=== PATIENT | male | born 1955 | race Caucasian/White ===

== ENCOUNTER 2017-08-13 10:47 | Emergency (ER) | payer BC ==
[~2017-08-13] VITALS: Ht 177.8 cm; Wt 77.6 kg
[~2017-08-13 10:47] MED LIST: CEPH500C PO; INSU100V6 SQ; LISI10TA2 PO
[2017-08-13] MEDS ORDERED: cloNIDine 0.1 MG (CATAPRES) TAB PO ONE (11:00)
[2017-08-13] MEDS ORDERED: NS IV 1000 ML 1,000 ML IV SCH (11:00)
--- NOTE | 2017-08-13 11:06 | ED General ---
General Stated Complaint: TIRED, NAUSEA HAS DIAG STARR CAUÑA Source of Information: Patient Exam Limitations: No Limitations History of Present Illness Date Seen by Provider: Aug 13, 2017 Time Seen by Provider: 11:02 Initial Comments to ER per private vehicle from home with reports of fatigue, nausea, feeling "out of it". He was diagnosed by Dr. Santana with [place] spotted fever about 2 weeks ago and he is finishing a 14 day course of doxycycline. He felt okay yesterday other than that he has developed a pruritic rash to the right arm over the past few days. He denies any fatigue or fevers as of yesterday. This morning upon awakening he feels out of it and "distant". Normally his blood pressure is about 120/80 and well-controlled on medication but today he is noted to be 200/114 which he states is very unusual for him. He sees Dr. Santana locally and travels between here in [place] quite a bit so his party host is in [place]. Timing/Duration: 12-24 Hours Severity: Moderate Associated Systoms: No Chest Pain, No Cough, No Diaphoresis, No Fever/Chills, No Headaches, No Loss of Appetite; Malaise, Nausea/Vomiting Allergies and Home Medications Allergies Coded Allergies: No Known Drug Allergies (Unverified , 09/27/13) Home Medications Cephalexin Monohydrate 500 Mg Capsule, 1 EACH PO TID Prescribed by: LEE AMBRIZ on 09/27/13 1802 Clonidine HCl 0.1 Mg Tablet, 0.1 MG PO BID PRN for high blood pressure Prescribed by: JHONNY WILKES on 08/13/17 1155 Insulin Glargine,Hum.rec.anlog 100 Unit/1 Ml Vial, 25 UNIT SQ HS, (Reported) Lisinopril 10 Mg Tablet, Unknown Dose PO DAILY, (Reported) Patient Home Medication List Home Medication List Reviewed: Yes Review of Systems Constitutional: see HPI EENTM: see HPI Respiratory: no symptoms reported Cardiovascular: no symptoms reported Genitourinary: no symptoms reported Musculoskeletal: no symptoms reported Skin: no symptoms reported Psychiatric/Neurological: No Symptoms Reported Hematologic/Lymphatic: No Symptoms Reported Past Qzylkbj-Uvjuci-Frxudb Hx Patient Social History Recent Foreign Travel: No Contact w/Someone Who Travel: No Past Medical History Reproductive Disorders: No Sexually Transmitted Disease: No HIV/AIDS: No Diabetes, Non-Insulin dep Physical Exam Vital Signs Vital Signs - First Documented 08/13/17 10:47 Temp 96.0 Pulse 78 Resp 16 B/P (MAP) 201/148 (165) Pulse Ox 96 O2 Delivery Room Air Capillary Refill : General Appearance: No Apparent Distress, WD/WN Eyes: Bilateral Eye Normal Inspection, Bilateral Eye PERRL, Bilateral Eye EOMI HEENT: PERRL/EOMI, TMs Normal, Normal ENT Inspection, Pharynx Normal Neck: Full Range of Motion, Normal Inspection Respiratory: Normal Breath Sounds, No Accessory Muscle Use, No Respiratory Distress Cardiovascular: Regular Rate, Rhythm, Normal Peripheral Pulses Gastrointestinal: Normal Bowel Sounds, Non Tender, Soft Neurologic/Psychiatric: Alert, Oriented x3 Skin: Rash (there is some erythema to the volar surface of the right forearm with papules that he states are pruritic. A few as well to the left arm but not nearly as much as the right.) Focused Exam Lactate Level 08/13/17 11:04: Lactic Acid Level 1.89 Lactic Acid Level Laboratory Tests Test 08/13/17 11:04 Lactic Acid Level 1.89 MMOL/L (0.50-2.00) Progress/Results/Core Measures Suspected Sepsis SIRS Temperature: Pulse: Respiratory Rate: Laboratory Tests 08/13/17 11:04: White Blood Count 8.1 Blood Pressure / Mean: 08/13/17 11:04: Lactic Acid Level 1.89 Laboratory Tests 08/13/17 11:04: Creatinine 1.07, Platelet Count 181, Total Bilirubin 0.7 Results/Orders Lab Results Laboratory Tests Test 08/13/17 11:04 08/13/17 11:15 Range/Units White Blood Count 8.1 4.3-11.0 10^3/uL Red Blood Count 4.89 4.35-5.85 10^6/uL Hemoglobin 16.3 13.3-17.7 G/DL Hematocrit 46 40-54 % Mean Corpuscular Volume 93 80-99 FL Mean Corpuscular Hemoglobin 33 25-34 PG Mean Corpuscular Hemoglobin Concent 36 32-36 G/DL Red Cell Distribution Width 13.2 10.0-14.5 % Platelet Count 181 130-400 10^3/uL Mean Platelet Volume 11.3 H 7.4-10.4 FL Neutrophils (%) (Auto) 53 42-75 % Lymphocytes (%) (Auto) 30 12-44 % Monocytes (%) (Auto) 13 H 0-12 % Eosinophils (%) (Auto) 3 0-10 % Basophils (%) (Auto) 0 0-10 % Neutrophils # (Auto) 4.3 1.8-7.8 X 10^3 Lymphocytes # (Auto) 2.4 1.0-4.0 X 10^3 Monocytes # (Auto) 1.1 H 0.0-1.0 X 10^3 Eosinophils # (Auto) 0.3 0.0-0.3 10^3/uL Basophils # (Auto) 0.0 0.0-0.1 10^3/uL Sodium Level 135 135-145 MMOL/L Potassium Level 4.6 3.6-5.0 MMOL/L Chloride Level 105 98-107 MMOL/L Carbon Dioxide Level 20 L 21-32 MMOL/L Anion Gap 10 5-14 MMOL/L Blood Urea Nitrogen 13 7-18 MG/DL Creatinine 1.07 0.60-1.30 MG/DL Estimat Glomerular Filtration Rate > 60 BUN/Creatinine Ratio 12 Glucose Level 226 H 70-105 MG/DL Lactic Acid Level 1.89 0.50-2.00 MMOL/L Calcium Level 10.1 8.5-10.1 MG/DL Total Bilirubin 0.7 0.1-1.0 MG/DL Aspartate Amino Transf (AST/SGOT) 17 5-34 U/L Alanine Aminotransferase (ALT/SGPT) 35 0-55 U/L Alkaline Phosphatase 77 40-136 U/L Troponin I < 0.30 <0.30 NG/ML Total Protein 7.4 6.4-8.2 GM/DL Albumin 4.2 3.2-4.5 GM/DL Urine Color YELLOW Urine Clarity CLEAR Urine pH 5 5-9 Urine Specific Webster 1.020 1.016-1.022 Urine Protein NEGATIVE NEGATIVE Urine Glucose (UA) 3+ H NEGATIVE Urine Ketones NEGATIVE NEGATIVE Urine Nitrite NEGATIVE NEGATIVE Urine Bilirubin NEGATIVE NEGATIVE Urine Urobilinogen NORMAL NORMAL MG/DL Urine Leukocyte Esterase NEGATIVE NEGATIVE Urine RBC (Auto) NEGATIVE NEGATIVE Urine RBC NONE /HPF Urine WBC NONE /HPF Urine Crystals NONE /LPF Urine Bacteria TRACE /HPF Urine Casts NONE /LPF Urine Mucus NEGATIVE /LPF Urine Other MOD SPERM H /HPF Urine Culture Indicated NO My Orders Orders - WILKES,PETER J SHOW HOST/HOSTESS Cbc With Automated Diff (08/13/17 11:00) Comprehensive Metabolic Panel (08/13/17 11:00) Ua Culture If Indicated (08/13/17 11:00) Iv Heplock-Insert (Order) (08/13/17 11:00) Chest 1 View, Ap/Pa Only (08/13/17 11:00) Blood Culture (08/13/17 11:00) Lactic Acid Analyzer (08/13/17 11:00) Ns Iv 1000 Ml (Sodium Chloride 0.9%) (08/13/17 11:00) Clonidine Tablet (Catapres Tablet) (08/13/17 11:00) Troponin I (08/13/17 11:06) Medications Given in ED Current Medications Medications Dose Ordered Sig/Ezio Route Start Time Stop Time Status Last Admin Dose Admin Clonidine HCl 0.1 mg ONCE ONCE PO 08/13/17 11:00 08/13/17 11:02 DC 08/13/17 11:15 0.1 MG Vital Signs/I&O 08/13/17 10:47 Temp 96.0 Pulse 78 Resp 16 B/P (MAP) 201/148 (165) Pulse Ox 96 O2 Delivery Room Air Capillary Refill : Progress Note : Progress Note NAME: FLORENCIO RAYMUNDO MED REC#: [id number] PT STATUS: REG ER : 1955 PHYSICIAN: JHONNY IWLKES SHOW HOST/HOSTESS ADMIT DATE: 08/13/17/ER Draft Date of Exam:08/13/17 CHEST 1 VIEW, AP/PA ONLY INDICATION: Weak, nausea. Single view of the chest demonstrates slight cardiac enlargement. Lungs are otherwise clear. There is no pneumothorax. No osseous abnormalities. IMPRESSION: Slight cardiac enlargement without pulmonary edema or infiltrate Dictated on workstation # [id number] Dict: 08/13/17 1132 Trans: 08/13/17 1136 [facility] [id number] Interpreted by: PACO RAMACHANDRAN Electronically signed by: Departure Communication (Admissions) [id number]- labs are unremarkable. I'll give him a short course of as needed clonidine until he can follow up with primary care and/or cardiology to tweak his daily antihypertensives. Impression Primary Impression: Malaise and fatigue Additional Impressions: Recent diagnosis of RMSF Hypertension Disposition: HOME, SELF-CARE Condition: Stable Departure-Patient Inst. Decision time for Depature: 11:52 Referrals: NO,LOCAL PHYSICIAN (PCP/Family) Primary Care Physician Patient Instructions: High Blood Pressure (DC), [place] Spotted Fever Add. Discharge Instructions: 1. Continue current antibiotics. Stay out of the sunlight as this can cause some sensitivity to the sunlight 2. Return to ER for any concerns 3. Take the new blood pressure medication (clonidine) up to twice daily if needed for a systolic blood pressure (top number) over 160. 4. Follow up with Dr Santana on Tuesday. Scripts Clonidine HCl (Clonidine HCl) 0.1 Mg Tablet 0.1 MG PO BID PRN for high blood pressure, #10 TAB Prov: JHONNY WILKES APRN 08/13/17 Copy Copies To 1: DAVIS SANTANA MD, PETER J APRN Aug 13, 2017 11:06
[2017-08-13 11:21] LABS: BASOPHILS % (AUTO) 0 % (0-10); EOSINOPHILS # (AUTO) 0.3 10^3/uL (0.0-0.3); EOSINOPHILS % (AUTO) 3 % (0-10); HEMATOCRIT 46 % (40-54); HEMOGLOBIN 16.3 G/DL (13.3-17.7); LYMPHOCYTES # (AUTO) 2.4 X 10^3 (1.0-4.0); LYMPHOCYTES % (AUTO) 30 % (12-44); MEAN CORPUSCULAR HEMOGLOBIN 33 PG (25-34); MEAN CORPUSCULAR HGB CONC 36 G/DL (32-36); MEAN CORPUSCULAR VOLUME 93 FL (80-99); MEAN PLATELET VOLUME 11.3 FL (7.4-10.4); MONOCYTES # (AUTO) 1.1 X 10^3 (0.0-1.0); MONOCYTES % (AUTO) 13 % (0-12); NEUTROPHILS # (AUTO) 4.3 X 10^3 (1.8-7.8); NEUTROPHILS % (AUTO) 53 % (42-75); PLATELET COUNT 181 10^3/uL (130-400); RED BLOOD COUNT 4.89 10^6/uL (4.35-5.85); RED CELL DISTRIBUTION WIDTH 13.2 % (10.0-14.5); WHITE BLOOD COUNT 8.1 10^3/uL (4.3-11.0)
[2017-08-13 11:29] LABS: BILIRUBIN,URINE NEGATIVE (NEGATIVE); CLARITY,URINE CLEAR; COLOR,URINE YELLOW; GLUCOSE, URINE (UA) 3+ (NEGATIVE); KETONES,URINE NEGATIVE (NEGATIVE); LEUKOCYTE ESTERASE ,URINE NEGATIVE (NEGATIVE); NITRITE,URINE NEGATIVE (NEGATIVE); PH,URINE 5 (5-9); PROTEIN,URINE NEGATIVE (NEGATIVE); UROBILINOGEN,URINE NORMAL (NORMAL)
--- NOTE | 2017-08-13 11:37 | Diagnostic Imaging Report ---
INDICATION: Weak, nausea. Single view of the chest demonstrates slight cardiac enlargement. Lungs are otherwise clear. There is no pneumothorax. No osseous abnormalities. IMPRESSION: Slight cardiac enlargement without pulmonary edema or infiltrate Dictated by: Dictated on workstation # [id number]
[2017-08-13 11:39] LABS: BACTERIA,URINE TRACE /HPF
[2017-08-13 11:39] LABS: ALANINE AMINOTRANSFERASE 35 U/L (0-55); ALBUMIN 4.2 GM/DL (3.2-4.5); ALKALINE PHOSPHATASE 77 U/L (40-136); BILIRUBIN,TOTAL 0.7 MG/DL (0.1-1.0); BUN/CREATININE RATIO 12; CALCIUM 10.1 MG/DL (8.5-10.1); CARBON DIOXIDE 20 MMOL/L (21-32); CHLORIDE 105 MMOL/L (98-107); CREATININE SERUM 1.07 MG/DL (0.60-1.30); GFR ESTIMATED > 60; GLUCOSE 226 MG/DL (70-105); POTASSIUM 4.6 MMOL/L (3.6-5.0); SODIUM 135 MMOL/L (135-145); TOTAL PROTEIN 7.4 GM/DL (6.4-8.2)
[2017-08-13 11:40] LABS: URINE OTHER MOD SPERM /HPF
[2017-08-13] MEDS ORDERED: CLON0.1T PO (11:55)
[2017-08-13 12:15] VITALS: BP 146/89
== END 2017-08-13 12:15 | disposition home or self-care (01) ==
LOC: EDUNIT# 10:47 → ER 10:51
DX: R53.83 Other fatigue (principal); R53.81 Other malaise; A77.0 Spotted fever due to Rickettsia rickettsii; I10 Essential (primary) hypertension; Z79.4 Long term (current) use of insulin
CPT/HCPCS: 36415; 71045; 80053; 81000; 83605; 84484; 85025; 87040; 96360

== ENCOUNTER → 2021-04-01 | Outpatient (CLI) | payer BC ==
[~2021-04-01] MED LIST changes: +CLN.1T PO
--- NOTE | 2021-04-01 15:28 | Diagnostic Imaging Report ---
INDICATION: Right calf pain COMPARISON: None TECHNIQUE: Duplex, jameson-scale and color-flow imaging of the right lower extremity venous system was performed. FINDINGS: The common femoral vein, superficial femoral vein, profunda femoris, and popliteal veins are normal. These vessels show normal compressibility, color flow, and doppler augmentation. The deep calf veins, although not very well seen, demonstrate no distinct intraluminal thrombus. IMPRESSION: Negative venous Doppler of the right lower extremity. Dictated by: Dictated on workstation # [id number]
== END ==
LOC: RAD 13:00
PROVIDERS: ATTEND Nurse Practitioner Family
DX: M79.661 Pain in right lower leg (principal)